=== PATIENT | male | born 1985 | race Caucasian/White ===

== ENCOUNTER 2017-03-27 12:26 | Emergency (ER) | payer SELFPAY ==
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
--- NOTE | 2017-03-27 12:54 | ED ORDER SUMMARY ---
..... Patient: MADISON DELAROSA OrderSheet [facility] VisitID: [id number] [address] [place] [address] 31y, M Registration Date/Time: 03/27/2017 ORDER SHEET Weight: 70.3 kg (stated) Allergies: None GENERAL ORDERS: MEDICATION ORDERS: Ibuprofen PO 800 mg (NOW) (12:53 03/27/2017 Tyra RIVERA) (Ack 12:55 DMaziarka R.N.) (12:57 DMakrystlea R.N.) IV FLUIDS: ORDER SHEET NOTES: [Electronically signed by Una Feliciano R.N. (13:32 03/27/2017)] [Electronically signed by Natty Nichole MD (10:05 04/04/2017)] [Electronically locked/signed by Una Feliciano R.N. (13:32 03/27/2017)]
--- NOTE | 2017-03-27 12:54 | ED ORDER SUMMARY ---
..... Patient: MADISON DELAROSA OrderSheet [facility] VisitID: [id number] [address] [place] [address] 31y, M Registration Date/Time: 03/27/2017 ORDER SHEET Weight: 70.3 kg (stated) Allergies: None GENERAL ORDERS: MEDICATION ORDERS: Ibuprofen PO 800 mg (NOW) (12:53 03/27/2017 Tyra RIVERA) (Ack 12:55 DMaziarka R.N.) (12:57 DMakrystlea R.N.) IV FLUIDS: ORDER SHEET NOTES: [Electronically signed by Una Feliciano R.N. (13:32 03/27/2017)] [Electronically signed by Natty Nichole MD (10:05 04/04/2017)] [Electronically locked/signed by Una Feliciano R.N. (13:32 03/27/2017)]
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
--- NOTE | 2017-04-04 10:06 | ED MAR SUMMARY ---
..... Medication Administration Record [facility] [address] [place] [address] Patient: MADISON DELAROSA Visit ID: [id number] 31y, M Weight: 70.3 kg Height/Length: 70 in BMI: 22.2 ALLERGIES: None Given 12:57 03/27/2017 Una Feliciano R.N. Medication Administered: IBUPROFEN [PO], Dose: 800 mg PO. Medication Ordered: Ibuprofen PO 800 mg (NOW).
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
--- NOTE | 2017-04-04 10:06 | ED MED RECONCILIATION SUMMARY ---
Patient: MADISON DELAROSA Medication Reconciliation Report [facility] VisitID: [id number] [address] [place] [address] 31y, M Registration Date/Time: 03/27/2017 Weight: 70.3 kg Height/Length: 70 in. BMI: 22.2 ALLERGIES: None The patient's Home Medications are listed below: NONE. The source(s) of the original Home Medication information: Not obtained. The following Medications were given to the patient in the Emergency Department: Ibuprofen [PO] PO 800 mg, administered: 03/27/2017 12:57:00 PM The following Medications were prescribed to the patient: None.
--- NOTE | 2017-04-04 10:06 | ED MED RECONCILIATION SUMMARY ---
Patient: MADISON DELAROSA Medication Reconciliation Report [facility] VisitID: [id number] [address] [place] [address] 31y, M Registration Date/Time: 03/27/2017 Weight: 70.3 kg Height/Length: 70 in. BMI: 22.2 ALLERGIES: None The patient's Home Medications are listed below: NONE. The source(s) of the original Home Medication information: Not obtained. The following Medications were given to the patient in the Emergency Department: Ibuprofen [PO] PO 800 mg, administered: 03/27/2017 12:57:00 PM The following Medications were prescribed to the patient: None.
--- NOTE | 2017-04-04 10:06 | ED MAR SUMMARY ---
..... Medication Administration Record [facility] [address] [place] [address] Patient: MADISON DELAROSA Visit ID: [id number] 31y, M Weight: 70.3 kg Height/Length: 70 in BMI: 22.2 ALLERGIES: None Given 12:57 03/27/2017 Una Feliciano R.N. Medication Administered: IBUPROFEN [PO], Dose: 800 mg PO. Medication Ordered: Ibuprofen PO 800 mg (NOW).
== END 2017-03-27 13:15 | disposition home or self-care (01) ==
LOC: ED SRH 12:26
DX: S39.012A Strain of muscle, fascia and tendon of lower back, initial encounter (principal); V43.62XA Car passenger injured in collision with other type car in traffic accident, initial encounter